=== PATIENT | male | born 1985 | race Caucasian/White ===

== ENCOUNTER 2018-08-01 17:01 | Emergency (ER) | payer OTHER ==
[~2018-08-01] VITALS: Ht 188 cm; Wt 147.4 kg
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
--- NOTE | 2018-08-01 17:28 | NUR ---
SHARAN BRANDON AT BEDSIDE FOR EVAL.
--- NOTE | 2018-08-01 17:44 | NUR ---
PT IS WHEELED TO CT SCAN VIA [facility].
[2018-08-01] MEDS ORDERED: ACETAMINOPHEN ES 500 MG TABLET ONE (18:26)
[2018-08-01] MEDS ORDERED: ACETAMINOPHEN 325 MG TABLET PO ONE (18:30)
[2018-08-01 19:46] VITALS: BP 131/79
--- NOTE | 2018-08-01 19:46 | NUR ---
Patient discharged to home in stable condition. Written and verbal after care instructions given. Patient verbalizes understanding of instruction.
== END 2018-08-01 19:47 | disposition home or self-care (01) ==
LOC: ER 17:03
DX: S09.8XXA Other specified injuries of head, initial encounter (principal); I10 Essential (primary) hypertension; F31.9 Bipolar disorder, unspecified; F10.10 Alcohol abuse, uncomplicated; Y90.9 Presence of alcohol in blood, level not specified; V49.69XA Unspecified car occupant injured in collision with other motor vehicles in traffic accident, initial encounter; Y93.89 Activity, other specified; Y92.410 Unspecified street and highway as the place of occurrence of the external cause; Y99.8 Other external cause status
CPT/HCPCS: 70450-TC; 72125-TC